=== PATIENT | female | born 1965 | race Caucasian/White ===

== ENCOUNTER 2019-08-17 14:04 | Inpatient (IN) | payer MEDICAID, OTHER ==
[~2019-08-17] VITALS: Ht 160 cm; Wt 90.7 kg
[~2019-08-17 14:04] MED LIST: ACET650S25 PO; METF-414 PO
[2019-08-17] MEDS ORDERED: PIPERACILLIN/TAZ 3.375G PREMIX 50 ML IV ONE (16:15)
[2019-08-17] MEDS ORDERED: VANCOMYCIN 1 G PREMIX 200 ML IV ONE (16:15)
[2019-08-17] MEDS ORDERED: LIDOCAINE 1%/EPI 1:100,000 10 ML VIAL IJ ONE (16:15)
[2019-08-17] MEDS ORDERED: SODIUM CHLORIDE 0.9% 1000ML BAG (SEPSIS BOLUS) IV ONE (16:15)
[2019-08-17] MEDS ORDERED: BACITRACIN ZINC OINT UDPKT TOP ONE (16:15)
[2019-08-17] MEDS ORDERED: BACITRACIN 15GM TUBE TOP NR (16:43)
[2019-08-17 16:44] LABS: BASOPHILS % 0.1 % (0.0-2.0); CHLORIDE 100 mEq/L (98-107); EOSINOPHILS % 0.7 % (0.0-5.0); HEMATOCRIT. 40.3 % (36.0-48.0); HEMOGLOBIN. 13.8 g/dL (12.0-16.0); LYMPHOCYTES % 16.6 % (20.0-50.0); MEAN CORPUSCULAR HEMOGLOBIN 30.2 pg (28.0-32.0); MEAN CORPUSCULAR VOLUME 88.3 fL (81.0-99.0); MEAN PLATELET VOLUME 9.6 fl (7.4-10.4); MONOCYTES % 5.9 % (2.0-8.0); NEUTROPHILS % 76.7 % (40.0-76.0); PLATELET 225 x1000/uL (130-400); PROTHROMBIN TIME 10.6 sec (9.6-11.0); RED BLOOD CELL COUNT 4.56 mill/uL (4.2-5.4)
[2019-08-17] MEDS ORDERED: LIDOCAINE HCL/EPINEPHRINE 1%-EPI 1:100,000 20 ML VIAL INFIL NR (16:46)
[2019-08-17 17:36] LABS: CLARITY URINE TURBID (CLEAR); COLOR URINE DARK YELLOW (YELLOW); KETONES URINE TRACE (NEGATIVE); LEUKOCYTE ESTERASE URINE 1+ (NEGATIVE); NITRITE URINE NEGATIVE (NEGATIVE); OCCULT BLOOD URINE NEGATIVE (NEGATIVE); PH URINE 6.5 (4.5-8.0); PROTEIN URINE TRACE (NEGATIVE); SPECIFIC GRAVITY URINE 1.034 (1.005-1.030)
[2019-08-17 22:00] VITALS: BP 129/74
[2019-08-18] VITALS (7 sets, daily range): BP systolic 98–131; BP diastolic 49–81
[2019-08-18] MEDS ORDERED: ACETAMINOPHEN 325MG TABLET PO PRN (02:15)
[2019-08-18] MEDS ORDERED: DEXTROSE 50% WATER 50ML SYRINGE IV PRN ×2 (02:15→15:00)
[2019-08-18] MEDS ORDERED: MORPHINE SULFATE 2 MG/ML CPJ (NOT FOR IM USE) IV PRN (02:15)
[2019-08-18] MEDS ORDERED: VANCOMYCIN 1 G PREMIX 200 ML IV SCH (05:00)
[2019-08-18] MEDS: BLOOD SUGAR DIAGNOSTIC STRIP TEST SCH ×4 (07:20→22:00)
[2019-08-18] MEDS: PIPERACILLIN/TAZOBACTAM 3.375 G in DEXT 5% WATER 100 ML IV SCH ×2 (08:48→13:09)
[2019-08-18] MEDS: INSULIN LISPRO 100 UNITS/ML SUBCUT SCH ×4 (08:56→22:21)
[2019-08-18] MEDS: SULFAMETHOXAZOLE/TRIMETHOPRIM 800/160MG TABLET PO SCH (15:30)
[2019-08-18] MEDS: METFORMIN HCL 500MG TABLET PO SCH (15:30)
[2019-08-18] MEDS ORDERED: ATORVASTATIN CALCIUM 10MG TABLET PO SCH (21:00)
[2019-08-19] VITALS: BP 138/76
[2019-08-19 04:00] VITALS: BP 111/50
[2019-08-19] MEDS: SULFAMETHOXAZOLE/TRIMETHOPRIM 800/160MG TABLET PO SCH (05:44)
[2019-08-19] MEDS: BLOOD SUGAR DIAGNOSTIC STRIP TEST SCH ×3 (06:55→17:59)
[2019-08-19 07:54] LABS: CHLORIDE 103 mEq/L (98-107)
[2019-08-19 08:00] VITALS: BP 140/80
[2019-08-19 08:02] LABS: BASOPHILS % 0.3 % (0.0-2.0); EOSINOPHILS % 3.2 % (0.0-5.0); HEMATOCRIT. 35.6 % (36.0-48.0); HEMOGLOBIN. 12.1 g/dL (12.0-16.0); LYMPHOCYTES % 36.2 % (20.0-50.0); MEAN CORPUSCULAR VOLUME 88.2 fL (81.0-99.0); MONOCYTES % 6.3 % (2.0-8.0); PLATELET 242 x1000/uL (130-400); RED BLOOD CELL COUNT 4.03 mill/uL (4.2-5.4); RED CELL DISTRIBUTION WIDTH 12.8 % (11.6-14.6)
[2019-08-19] MEDS: METFORMIN HCL 500MG TABLET PO SCH (08:19)
[2019-08-19] MEDS: INSULIN LISPRO 100 UNITS/ML SUBCUT SCH ×3 (08:47→18:18)
[2019-08-19 12:00] VITALS: BP 118/67
[2019-08-19 16:00] VITALS: BP 125/62
[2019-08-19 17:40] VITALS: BP 125/62
== END 2019-08-19 18:55 | disposition home or self-care (01) | DRG 383 ==
LOC: ER 16:05 → 6EST 18:37 → EDBEDREQ 18:45 → EDBEDREQTM 18:45 → ENRESERV 20:01
PROVIDERS: ADMIT Internal Medicine; ATTEND Internal Medicine
PROC: 0Y900ZZ Drainage of Right Buttock, Open Approach (ICD-10-PCS; principal; 2019-08-17)
DX: L02.31 Cutaneous abscess of buttock (principal); E11.65 Type 2 diabetes mellitus with hyperglycemia; L03.317 Cellulitis of buttock; E78.5 Hyperlipidemia, unspecified; Z87.442 Personal history of urinary calculi; Z91.018 Allergy to other foods; Z79.84 Long term (current) use of oral hypoglycemic drugs
CPT/HCPCS: 36415; 80048; 80061; 80202; 81003; 82962; 83036; 83605; 84145; 84484; 93005; 96365; 99285; J1815; J2543; J3370; J3490; J7030; J7040; J7060